=== PATIENT | female | born 1960 | race African-American/Black ===

== ENCOUNTER 2017-09-03 13:47 | Outpatient (CLI) | payer SELFPAY ==
--- NOTE | 2017-09-10 11:42 | MMO ---
BILATERAL SCREENING MAMMOGRAM: Date: 09/03/17 COMPARISON: 12/01/08. HISTORY: Screening mammography. FINDINGS: This patient's mammogram was interpreted with the assistance of computer-aided detection. Scattered fibroglandular densities are noted. Scar markers are noted bilaterally. No worrisome calcif ication, mass lesion, or architectural distortion. There is a focal asymmetry noted in the lateral as pect of the right breast, unchanged when compared to the 2009 exam. IMPRESSION: BIRADS 2: Benign Finding(s) Annual screening mammography recommended. POS: [facility]
== END 2017-09-03 13:48 | disposition home or self-care (01) ==
LOC: SCSMAMMO 13:47
PROVIDERS: ATTEND Family Medicine
DX: Z12.31 Encounter for screening mammogram for malignant neoplasm of breast (principal); Z00.00 Encounter for general adult medical examination without abnormal findings
CPT/HCPCS: 77067

== ENCOUNTER 2017-10-02 14:43 | Outpatient (CLI) | payer SELFPAY ==
--- NOTE | 2017-10-02 16:31 | ULT ---
PELVIC ULTRASOUND: Date: 10/02/17 COMPARISON: None. HISTORY: Postmenopausal menstrual bleeding. TECHNIQUE: Multiplanar Herrera scale and color Doppler images were obtained in a transabdominal and transvaginal pe lvic ultrasound. Spectral analysis of the Doppler waveform of the left ovary was performed. FINDINGS: There is a calcification in the left aspect of the uterus measuring 1.2 cm in greatest dimension. Nab othian cysts are seen in the cervix. The uterus is normal in size. The endometrial stripe is normal i n thickness, measuring 8.0 mm. The right ovary could not be visualized. No free fluid is seen in the pelvis. The left ovary is henrietta l in size and appearance, and demonstrates normal internal flow. IMPRESSION: 1. Nabothian cysts. 2. Left uterine calcification, could represent a calcified fibroid. POS: [facility]
--- NOTE | 2017-10-02 16:34 | ULT ---
COMPLETE ABDOMINAL ULTRASOUND: Date: 10/02/17 COMPARISON: None. HISTORY: Abdominal pain. TECHNIQUE: Multiplanar Herrera scale and color Doppler images were obtained in a complete abdominal ultrasound. FINDINGS: The liver demonstrates slight increased echogenicity without focal lesions or intrahepatic ductal dil atation. The gallbladder is normal, without stones, sludge, gallbladder wall thickening, or perichole cystic fluid. The common bile duct is normal, measuring 3.0 mm. The aorta and inferior vena cava are normal in caliber. There is only limited visualization of the pa ncreas, which is unremarkable. The spleen is normal in echogenicity without focal lesions and measure s 8.0 cm in length. Both kidneys are normal in echogenicity without hydronephrosis or calculi and measure 9.1 and 9.6 cm in length on the right and left, respectively. IMPRESSION: Increased echogenicity of the liver may be secondary to mild fatty infiltration. POS: [facility]
== END 2017-10-02 14:44 | disposition home or self-care (01) ==
LOC: SCSULT 14:43
PROVIDERS: ATTEND Family Medicine
DX: N92.4 Excessive bleeding in the premenopausal period (principal); R10.9 Unspecified abdominal pain; K76.0 Fatty (change of) liver, not elsewhere classified; K76.89 Other specified diseases of liver; N88.8 Other specified noninflammatory disorders of cervix uteri
CPT/HCPCS: 76700; 76856

== ENCOUNTER 2020-01-05 10:46 | Outpatient (CLI) | payer MEDICARE ==
--- NOTE | 2020-01-05 11:45 | MMO ---
Bilateral MAMMO Bilat Screen [facility]. CLINICAL HISTORY: Patient is 59 years old and is seen for screening. The patient has no family history of breast cancer. The patient has no personal history of cancer. The patient has a history of left Excisional Biopsy in November, - fibroadenoma and right Excisional Biopsy in November, - fat necrosis - with stromal fibrosis and duct dilatation. VIEWS: The views performed were: bilateral craniocaudal with tomosynthesis and bilateral mediolateral oblique with tomosynthesis. FILMS COMPARED: The present examination has been compared to prior imaging studies performed at [facility] on 12/01/2008, and at [facility] on 12/20/2000 and 04/04/2001. This study has been interpreted with the assistance of computer-aided detection. MAMMOGRAM FINDINGS: There are scattered fibroglandular densities. There are no suspicious masses, suspicious calcifications, or new areas of architectural distortion. IMPRESSION: THERE IS NO MAMMOGRAPHIC EVIDENCE OF MALIGNANCY. A ROUTINE FOLLOW-UP MAMMOGRAM IN 1 YEAR IS RECOMMENDED. THE RESULTS OF THIS EXAM WERE SENT TO THE PATIENT. ACR BI-RADS Category 1 - Negative MAMMOGRAPHY NOTE: 1. A negative mammogram report should not delay a biopsy if a dominant of clinically suspicious mass is present. 2. Approximately 10% to 15% of breast cancers are not detected by mammography. 3. Adenosis and dense breasts may obscure an underlying neoplasm. Reported by: MARGUERITE ADAM MD Electonically Signed: [id number]
== END 2020-01-05 10:47 | disposition home or self-care (01) ==
LOC: BICMAMMO 10:46
PROVIDERS: ATTEND Family Medicine
DX: Z12.31 Encounter for screening mammogram for malignant neoplasm of breast (principal)
CPT/HCPCS: 77063; 77067

== ENCOUNTER 2021-07-05 08:55 | Outpatient (CLI) | payer MEDICARE | END 2021-07-05 08:56 | disposition home or self-care (01) | LOC: BICMAMMO 08:55 | PROVIDERS: ATTEND Family Medicine | DX: Z12.31 Encounter for screening mammogram for malignant neoplasm of breast (principal) | CPT/HCPCS: 77063; 77067 ==

== ENCOUNTER 2021-07-06 13:30 | Outpatient (CLI) | payer MEDICARE | END 2021-07-06 13:31 | disposition home or self-care (01) | LOC: BICRAD 13:30 | PROVIDERS: ATTEND Family Medicine | DX: R91.8 Other nonspecific abnormal finding of lung field (principal) | CPT/HCPCS: 71046 ==